=== PATIENT | male | born 1940 | race Caucasian/White ===

== ENCOUNTER 2016-09-19 18:34 | Emergency (ER) | payer OTHER ==
[~2016-09-19] VITALS: Ht 170.2 cm; Wt 95.7 kg
[~2016-09-19 18:34] MED LIST: AMLODIPINE10 MG PO; DIOVAN 160 MG160 MG PO; FLOMAX(MONOGRA0.4 MG PO; MULTIVITAMIN1 TAB PO; PROS5 PO; SIMVASTATIN40 MG PO; TOPROL XL 50MG50 MG PO; VESICARE 10MG10 MG PO
--- NOTE | 2016-09-19 20:04 | ED GI/GU/ABDOMINAL COMPLAINT ---
See Addendum History of Present Illness General Chief Complaint: Abdominal Pain/Flank Pain Stated Complaint: KIDNEY STONE, HX OF SAME Source: patient, old records Exam Limitations: no limitations Vital Signs & Intake/Output Vital Signs & Intake/Output Vital Signs Date Time Temp Pulse Resp B/P Pulse O2 O2 Flow FiO2 Ox Delivery Rate 09/19 2046 98.2 66 18 159/74 96 Room Air 09/20 1843 97.8 74 16 182/80 98 Room Air Allergies Coded Allergies: NO KNOWN ALLERGIES (05/21/14) NKA PER ORDER SHEET OF 05/21/14 (SJS) Reconcile Medications Amlodipine Besylate (Amlodipine) 10 MG TABLET 1 TAB PO DAILY HYPERTENSION ( Reported) Finasteride (Propecia) 5 MG TAB 5 MG PO DAILY PROSTATE (Reported) Metoprolol Succ XL (Toprol Xl 50MG Tab) 50 MG TAB.ER.24H 1 TAB PO D BLOOD PRESSURE (Reported) Multivitamin (Multiple Vitamins) 1 EACH TABLET 1 TAB PO D SUPPLEMENT ( Reported) Simvastatin 40 MG TABLET 1 TAB PO QPM CHOLESTEROL (Reported) Solifenacin Succinate (Vesicare) 10 MG TABLET 1 TAB PO QPM PROSTATE (Reported ) Tamsulosin Hydrochloride (Flomax) 0.4 MG CAP.ER.24H 1 CAP PO BID PROSTATE ( Reported) Valsartan (Diovan) 160 MG TABLET 1 TAB PO DAILY BLOOD PRESSURE (Reported) Triage Note: PT ARRIVES WITH C/O LEFT SIDED FLANK PAIN STATES HE THINKS ITS KIDNEY STONE IT FEELS LIKE THE ONES HE HAS HAD IN THE PAST. Triage Nurses Notes Reviewed? yes HPI: Patient presents for evaluation of a severe left lower quadrant abdominal pain that began gradually about 2 days ago. The pain has been more or less constant but did resolve briefly one time. Patient states it is similar to prior kidney stone pain. It is a severe (7/10) pain that does not radiate. Nothing seems to make it better or worse. There has been associated hematuria. The patient denies fever, cold symptoms, dysuria, vomiting, diarrhea, chest pain or shortness of breath. He has not tried any medications at this point. Past History Travel History Traveled to [place] past 21 day No Medical History Any Pertinent Medical History? see below for history Cardiovascular: hypertension, hyperlipidemia Renal: KIDNEY STONES History of MRSA: No History of VRE: No History of CDIFF: No Pneumonia Vaccine: 05/23/14 Surgical History Surgical History: none Psychosocial History Who do you live with Friend Services at Home None What is your primary language Amharic Tobacco Use: Never used ETOH Use: denies use Illicit Drug Use: denies illicit drug use Family History Hx Contributory? No Review of Systems Review of Systems Constitutional: Reports: no symptoms. EENTM: Reports: no symptoms. Respiratory: Reports: no symptoms. Cardiovascular: Reports: no symptoms. GI: Reports: see HPI. Genitourinary: Reports: see HPI. Musculoskeletal: Reports: no symptoms. Skin: Reports: no symptoms. Neurological/Psychological: Reports: no symptoms. Hematologic/Endocrine: Reports: no symptoms. Immunologic/Allergic: Reports: no symptoms. All Other Systems: Reviewed and Negative Physical Exam Physical Exam Gastrointestinal: see below Comments: Gen.: Well-nourished, well-developed, no acute respiratory distress. Mild distress secondary to left lower quadrant abdominal pain Head: Normocephalic, atraumatic. Eyes: Normal inspection bilaterally Ears: Normal inspection bilaterally Nose: Normal inspection Throat/mouth : Moist mucosa Neck: Supple, full range of motion, no goiter Heart: Regular rate and rhythm, no murmurs rubs or gallops Lungs: Clear to auscultation bilaterally with normal air entry Chest: Nontender Back: Normal range of motion Abdomen: Soft, nontender, nondistended, normal bowel sounds Extremities: Normal range of motion grossly, equal radial pulses, no cyanosis clubbing or edema Neurologic: Cranial nerves grossly intact, speech is clear Skin: warm and dry Psychiatric: Calm, cooperative, no apparent delusions or hallucinations Core Measures ACS in differential dx? No Severe Sepsis Present: No Septic Shock Present: No Progress Differential Diagnosis: diverticulitis, ureterolithiasis Plan of Care: Orders Procedure Date/time Status BASIC METABOLIC PANEL 09/19 2002 Complete URINALYSIS 09/19 1848 Complete Laboratory Tests 09/19/162010: Anion Gap 13, Estimated GFR 49 L, BUN/Creatinine Ratio 15.7, Glucose 109 H, Calcium 10.2 09/19/16 1851: Urine Color PINK H, Urine Clarity HAZY H, Urine pH 6.0, Ur Specific [place] 1.020, Urine Protein TRACE H, Urine Ketones 15 H, Urine Nitrite NEG, Urine Bilirubin NEG, Urine Urobilinogen 0.2, Ur Leukocyte Esterase NEG, Ur Microscopic SEDIMENT EXAMINED, Urine RBC >75 H, Urine WBC 1-3 H, Urine Bacteria FEW H, Urine Hemoglobin LARGE H, Urine Glucose NEG Diagnostic Imaging: Discussed w/RAD: CT Scan. Radiology Impression: PATIENT: SANGITA ISBELL PRESENT AGE: 75 PATIENT ACCOUNT NO: [id number] : 38 LOCATION: [facility] ORDERING PHYSICIAN: ORLANDO BEEBE MD SERVICE DATE: 09/19/16 EXAM TYPE: CAT - CT ABD & PELVIS W/O IV CONTRAS EXAMINATION: CT ABDOMEN AND PELVIS WITHOUT CONTRAST CLINICAL INFORMATION: Left lower quadrant abdominal pain. Similar to prior kidney stone. COMPARISON: 06/03/2014 TECHNIQUE: Multidetector volumetric imaging was performed from the superior aspect of the liver through the pubic symphysis. Sagittal and coronal reformatted images were obtained on the technologist's workstation. DLP: 712 mGy-cm FINDINGS: LUNG BASES: Right basilar subsegmental atelectasis. Coronary artery calcifications noted. LIVER, GALLBLADDER, AND BILIARY TREE: The liver is normal in size, shape, and attenuation. No focal hepatic lesion or biliary ductal dilatation is present. The gallbladder is unremarkable with no evidence of radiopaque gallstones, gallbladder wall thickening, or obvious pericholecystic inflammatory changes. PANCREAS: Unremarkable. SPLEEN: Unremarkable. ADRENAL GLANDS: The left adrenal gland is unremarkable. 2.3 cm lipid rich right adrenal adenoma. KIDNEYS AND URETERS: The kidneys are normal in size, shape, and position. Bilateral perinephric stranding, left greater than right. Mild left hydroureteronephrosis. There is a 0.3 cm distal ureteral calculus approximately 1 cm proximal to the ureterovesicular junction. This measures 0.6 cm in CC dimension No additional left sided calculi. 0.1 cm right midpole calculus 11 cm from the posterior axillary line. BLADDER: Unremarkable. GASTROINTESTINAL TRACT: The stomach and small bowel are unremarkable. No dilated loops of bowel or evidence of obstruction. There is colonic diverticulosis without diverticulitis. There is an enterocolic anastomotic suture line in the right upper quadrant. No colonic wall thickening or inflammatory change. No free air or free fluid. ABDOMINAL WALL: No significant hernia is appreciated. LYMPH NODES: Normal. VASCULAR: Mild atherosclerotic calcifications. PELVIC VISCERA: The prostate is enlarged, measuring 6.1 cm transverse. The seminal vesicles are unremarkable. OSSEOUS STRUCTURES: No acute or suspicious osseous abnormality. Multilevel degenerative changes throughout the spine. IMPRESSION: Mild left hydroureteronephrosis with a 0.3 x 0.6 cm distal ureteral calculus. DICTATED BY: EFREN CÁRDENAS MD DATE/ TIME DICTATED:09/19/162036 RHEUMATOLOGIST:HAL DATE/TIME TRANSCRIBED: 09/19/162036 CONFIDENTIAL, DO NOT COPY WITHOUT APPROPRIATE AUTHORIZATION. < Electronically signed in Other Vendor System> SIGNED BY: EFREN CÁRDENAS MD 09/19/162047 Initial ED EKG: none Departure Departure Disposition: HOME OR SELF CARE Condition: Stable Clinical Impression Primary Impression: Renal colic on left side Secondary Impressions: Ureterolithiasis Referrals: ANDREA SEVERINO,PEDRO LUIS FRITZ MD,BENJI Roberson (PCP/Family) Additional Instructions: Flomax to help pass the kidney stone. ibuprofen 600 mg every 6 hours as needed for pain. Add [place] if needed for pain. Follow-up with your urologist for reevaluation this week. Return if any concerns or sudden worsening. Please note that there might be incidental findings in your evaluation that are unrelated to the current emergency department visit. Please notify your primary care doctor about this emergency department visit in order to obtain and review all of the testing performed so that these incidental findings can be monitored as needed. If you had an x-ray performed, please understand that some fractures may not be seen on the initial set of x-rays. If your symptoms persist you might need a repeat set of x-rays to check for such a fracture. If you had a laceration evaluated, please understand that foreign bodies such as glass or wood may not be visible to the naked eye or on plain x-rays. If the wound becomes red, swollen, increasingly more painful or if there is any drainage from the wound, please have it reevaluated by a physician for the possibility of a retained foreign body. Thank you for choosing the [facility] Emergency Department for your care. It was a pleasure to serve you today. Orlando Beebe M.D. [facility] Departure Forms: Customer Survey General Discharge Information Prescriptions: Current Visit Scripts Tamsulosin HCl (Flomax) 1 CAP PO DAILY #7 CAP Ibuprofen 1 TAB PO Q6P PRN PAIN #28 TAB with food Hydrocodone/Acetaminophen ([place] 5-325 Tablet) 1-2 TAB PO Q6P PRN PAIN #20 TAB Critical Care Note Critical Care Note Critical Care Time: 30-74 min
[2016-09-19 20:47] VITALS: BP 159/74
--- NOTE | 2016-09-19 20:48 | CT SCAN REPORT ---
EXAMINATION: CT ABDOMEN AND PELVIS WITHOUT CONTRAST CLINICAL INFORMATION: Left lower quadrant abdominal pain. Similar to prior kidney stone. COMPARISON: 06/03/2014 TECHNIQUE: Multidetector volumetric imaging was performed from the superior aspect of the liver through the pubic symphysis. Sagittal and coronal reformatted images were obtained on the technologist's workstation. DLP: 712 mGy-cm FINDINGS: LUNG BASES: Right basilar subsegmental atelectasis. Coronary artery calcifications noted. LIVER, GALLBLADDER, AND BILIARY TREE: The liver is normal in size, shape, and attenuation. No focal hepatic lesion or biliary ductal dilatation is present. The gallbladder is unremarkable with no evidence of radiopaque gallstones, gallbladder wall thickening, or obvious pericholecystic inflammatory changes. PANCREAS: Unremarkable. SPLEEN: Unremarkable. ADRENAL GLANDS: The left adrenal gland is unremarkable. 2.3 cm lipid rich right adrenal adenoma. KIDNEYS AND URETERS: The kidneys are normal in size, shape, and position. Bilateral perinephric stranding, left greater than right. Mild left hydroureteronephrosis. There is a 0.3 cm distal ureteral calculus approximately 1 cm proximal to the ureterovesicular junction. This measures 0.6 cm in CC dimension No additional left sided calculi. 0.1 cm right midpole calculus 11 cm from the posterior axillary line. BLADDER: Unremarkable. GASTROINTESTINAL TRACT: The stomach and small bowel are unremarkable. No dilated loops of bowel or evidence of obstruction. There is colonic diverticulosis without diverticulitis. There is an enterocolic anastomotic suture line in the right upper quadrant. No colonic wall thickening or inflammatory change. No free air or free fluid. ABDOMINAL WALL: No significant hernia is appreciated. LYMPH NODES: Normal. VASCULAR: Mild atherosclerotic calcifications. PELVIC VISCERA: The prostate is enlarged, measuring 6.1 cm transverse. The seminal vesicles are unremarkable. OSSEOUS STRUCTURES: No acute or suspicious osseous abnormality. Multilevel degenerative changes throughout the spine. IMPRESSION: Mild left hydroureteronephrosis with a 0.3 x 0.6 cm distal ureteral calculus.
[2016-09-19] MEDS ORDERED: NORCO 5-325 TA1 EACH PO (21:00)
[2016-09-19] MEDS ORDERED: IBUPROFEN600 M1 PO (21:00)
[2016-09-19] MEDS ORDERED: FLOMAX0.4 M1 PO (21:00)
== END 2016-09-19 21:19 ==
LOC: ERH 18:34
DX: N23 Unspecified renal colic (principal); N20.1 Calculus of ureter
CPT/HCPCS: 74176; 81001; 96374; J1885